=== PATIENT | male | born 1985 | race Two or more races ===

== ENCOUNTER 2016-08-04 09:36 | Emergency (ER) | payer OTHER ==
[~2016-08-04] VITALS: Ht 172.7 cm; Wt 81.6 kg
[2016-08-04] MEDS ORDERED: NAPR500T2 PO (09:47)
[2016-08-04] MEDS ORDERED: PRED10PA2 PO (09:47)
[2016-08-04] MEDS ORDERED: BUPR8SUB SL (09:47)
[2016-08-04] MEDS ORDERED: LISI10TA4 PO (09:47)
[2016-08-04] MEDS ORDERED: BACT800T5 PO (10:57)
[2016-08-04 11:05] VITALS: BP 106/72
== END 2016-08-04 11:06 | disposition home or self-care (01) ==
LOC: M ED 10:35
DX: N48.89 Other specified disorders of penis (principal); I10 Essential (primary) hypertension; F17.200 Nicotine dependence, unspecified, uncomplicated; M06.9 Rheumatoid arthritis, unspecified; Z79.899 Other long term (current) drug therapy

== ENCOUNTER 2016-08-05 05:34 | Emergency (ER) | payer OTHER ==
[~2016-08-05] VITALS: Ht 172.7 cm; Wt 81.6 kg
[~2016-08-05 05:34] MED LIST: BACT800T5 PO; BUPR8SUB SL; LISI10TA4 PO; NAPR500T2 PO; PRED10PA2 PO
[2016-08-05 07:18] VITALS: BP 122/69
== END 2016-08-05 07:33 | disposition home or self-care (01) ==
LOC: M ED 06:41
DX: N48.89 Other specified disorders of penis (principal); F17.200 Nicotine dependence, unspecified, uncomplicated; Z79.899 Other long term (current) drug therapy

== ENCOUNTER → 2016-08-15 | Outpatient (REF) | payer OTHER | LOC: M SMT 13:00 | PROVIDERS: ATTEND Urology | DX: R10.2 Pelvic and perineal pain (principal) ==

== ENCOUNTER → 2016-08-22 | Outpatient (CLI) | payer OTHER ==
[~2016-08-22] MED LIST changes: +ISOVUE-370 76% 100ML VIAL (Q9967) As Ordered ONE
--- NOTE | 2016-08-23 09:03 | REP ---
Clinical: Pelvic pain. Comparison: None. Findings: Lung bases are clear. Visualized heart and pericardium normal. Liver, spleen, pancreas, gallbladder, bilateral adrenal glands and kidneys are normal. Specifically, there is no perinephric stranding, hydroureteronephrosis, intrarenal or obstructing ureteral calculi. The enteric system including stomach, small and large bowel is without obstruction or acute inflammatory process. Normal terminal ileum and appendix are identified in the right lower quadrant. Pelvis demonstrates normal bladder and age appropriate prostate/seminal vesicles. No ascites. No adenopathy. No free air. Abdominal aorta without aneurysm. Musculoskeletal structures are intact. Impression: Normal noncontrast CT of the abdomen and pelvis. Signed by Tomasz Moss MD 08/23/2016 08:54 A
== END ==
LOC: M RAD 17:29
PROVIDERS: ATTEND Urology
DX: R10.2 Pelvic and perineal pain (principal)